=== PATIENT | male | born 1985 | race Hispanic/Latino ===

== ENCOUNTER 2021-04-09 17:52 | Inpatient (IN) | payer OTHER ==
[~2021-04-09] VITALS: Ht 175.3 cm; Wt 87.5 kg
[2021-04-09 17:53] VITALS: BP 118/68
[2021-04-09 21:57] VITALS: BP 123/77
[2021-04-09] MEDS ORDERED: 0.9% NACL 250ML IVPB ONE (22:30)
[2021-04-09] MEDS ORDERED: MONTELUKAST SODIUM 10 MG TAB PO SCH (22:30)
[2021-04-09] MEDS ORDERED: MAGNESIUM 2GM PREMIX 50ML 50 ML IV SCH (22:30)
[2021-04-09] MEDS ORDERED: AZITHROMYCIN 500MG VIAL IVPB ONE (22:30)
[2021-04-09] MEDS ORDERED: DEXAMETHASONE SOD PHOSPHATE 4 MG/ML 1ML VIAL IVP SCH (22:30)
[2021-04-09] MEDS ORDERED: ONDANSETRON 4MG INJ IVP ONE (22:30)
[2021-04-09] MEDS ORDERED: LACTATED RINGERS 1000ML 1,000 ML IV ONE (22:30)
[2021-04-09 22:36] LABS: ABG BASE EXCESS -0.9 mmol/L (-2.0-3.0); ABG HCO3 22.3 mmol/L (21.0-28.0); ABG OXYGEN SATURATION 95.7 % (95.0-99.0); ABG PCO2 33 mmHg (35-48)
[2021-04-09 22:42] LABS: BASOPHILS % (AUTO) 0.2 % (0.0-5.0); EOSINOPHILS % (AUTO) 0.2 % (0.0-8.0); HEMATOCRIT 40.5 % (42-54); LYMPHOCYTES % (AUTO) 25.4 % (21.0-51.0); MEAN CORPUSCULAR HEMOGLOBIN 31.4 pg (27.0-33.0); MEAN CORPUSCULAR HGB CONC 34.3 g/dL (32.0-36.0); MEAN CORPUSCULAR VOLUME 91.6 fL (79-99); MONOCYTES % (AUTO) 5.9 % (3.0-13.0); NEUTROPHILS % (AUTO) 67.8 % (40.0-77.0); PLATELET COUNT (AUTO) 161 K/uL (130-400); RED BLOOD CELL COUNT(AUTO) 4.42 MIL/uL (4.50-6.20); WHITE BLOOD COUNT (AUTO) 6.1 K/uL (4.8-10.8)
[2021-04-09] MEDS ORDERED: AZITHROMYCIN 500MG+NS 250ML 250 ML IV ONE (22:59)
[2021-04-10] VITALS (8 sets, daily range): BP systolic 108–123; BP diastolic 56–79
[2021-04-10] MEDS ORDERED: ENOXAPARIN SODIUM 80 MG/0.8 ML SQ ONE ×2 (00:30→01:33)
[2021-04-10] MEDS ORDERED: GUAIFENESIN-DM 200/20 MG 10 ML PO PRN (01:00)
[2021-04-10] MEDS ORDERED: DIPHENHYDRAMINE HCL 25 MG CAPSULE PO PRN (01:00)
[2021-04-10] MEDS: DEXAMETHASONE SOD PHOSPHATE 4 MG/ML 1ML VIAL IVP SCH (01:00)
[2021-04-10] MEDS ORDERED: LACTULOSE 20 GM/30 ML UDCUP PO PRN (01:00)
[2021-04-10] MEDS ORDERED: ACETAMINOPHEN WITH CODEINE 1 TAB TAB PO PRN ×2 (01:00)
[2021-04-10] MEDS: 0.9% NACL 250ML IVPB SCH (01:00)
[2021-04-10] MEDS ORDERED: ACETAMINOPHEN 325 MG TAB PO PRN (01:00)
[2021-04-10] MEDS: AZITHROMYCIN 500MG VIAL IVPB SCH (01:00)
[2021-04-10] MEDS ORDERED: ONDANSETRON 4MG INJ IV PRN (01:00)
[2021-04-10] MEDS ORDERED: ALBUTEROL INHALER 90MCG/INH IH PRN (01:00)
[2021-04-10] MEDS ORDERED: MAG/ALUM/SIMETH 30 ML UDCUP PO PRN (01:00)
[2021-04-10] MEDS: CEFTRIAXONE 1G VIAL IVP SCH ×2 (01:36→13:00)
[2021-04-10 01:53] LABS: INR 1.1 (0.85-1.15); PROTHROMBIN TIME 11.9 SEC (9.6-11.6)
[2021-04-10 01:54] LABS: PARTIAL THROMBOPLASTIN TIME 25.8 SEC (26.3-35.5)
[2021-04-10 02:24] LABS: CREATININE 1.1 mg/dL (0.5-1.5)
[2021-04-10 02:28] LABS: ALBUMIN 3.2 g/dL (3.5-5.0); BILIRUBIN,TOTAL 0.6 mg/dL (0.2-1.0); TOTAL PROTEIN, SERUM 7.7 g/dL (6.0-8.3)
[2021-04-10] MEDS: ASCORBIC ACID 500 MG TAB PO SCH (09:44)
[2021-04-10] MEDS: ZINC SULFATE 220 CAPSULE PO SCH (09:44)
[2021-04-10] MEDS: FAMOTIDINE 20MG VIAL IV SCH ×2 (09:44→21:07)
[2021-04-10] MEDS: ENOXAPARIN SODIUM 40 MG/0.4 ML SYRINGE SQ SCH (09:46)
[2021-04-10] MEDS ORDERED: PHARMACY COMMUNICATION**REMDESIVIR MISC SCH (11:00)
[2021-04-11] MEDS ORDERED: AZITHROMYCIN 500MG+NS 250ML 250 ML IV ONE (00:58)
[2021-04-11 01:20] LABS: BASOPHILS % (AUTO) 0.2 % (0.0-5.0); EOSINOPHILS % (AUTO) 2.5 % (0.0-8.0); HEMATOCRIT 37.5 % (42-54); LYMPHOCYTES % (AUTO) 24.6 % (21.0-51.0); MEAN CORPUSCULAR HGB CONC 34.9 g/dL (32.0-36.0); MEAN CORPUSCULAR VOLUME 91.7 fL (79-99); MONOCYTES % (AUTO) 8.4 % (3.0-13.0); NEUTROPHILS % (AUTO) 63.5 % (40.0-77.0); PLATELET COUNT (AUTO) 192 K/uL (130-400); RED BLOOD CELL COUNT(AUTO) 4.09 MIL/uL (4.50-6.20); RED CELL DISTRIBUTION WIDTH 11.9 % (11.0-15.5); WHITE BLOOD COUNT (AUTO) 6.1 K/uL (4.8-10.8)
[2021-04-11 01:36] VITALS: BP 94/60
[2021-04-11] MEDS: 0.9% NACL 250ML IVPB SCH (01:36)
[2021-04-11] MEDS: DEXAMETHASONE SOD PHOSPHATE 4 MG/ML 1ML VIAL IVP SCH (01:36)
[2021-04-11] MEDS: AZITHROMYCIN 500MG VIAL IVPB SCH (01:36)
[2021-04-11] MEDS: CEFTRIAXONE 1G VIAL IVP SCH ×2 (01:36→13:31)
[2021-04-11 07:50] LABS: ALBUMIN 2.6 g/dL (3.5-5.0); BILIRUBIN,TOTAL 0.5 mg/dL (0.2-1.0); POTASSIUM 4.5 mmol/L (3.5-5.1); TOTAL PROTEIN, SERUM 6.8 g/dL (6.0-8.3)
[2021-04-11] MEDS: FAMOTIDINE 20MG VIAL IV SCH ×2 (09:43→20:32)
[2021-04-11] MEDS: ASCORBIC ACID 500 MG TAB PO SCH (09:43)
[2021-04-11] MEDS: ENOXAPARIN SODIUM 40 MG/0.4 ML SYRINGE SQ SCH (09:44)
[2021-04-11] MEDS: ZINC SULFATE 220 CAPSULE PO SCH (09:44)
[2021-04-11 09:55] VITALS: BP 103/63
[2021-04-11 11:30] VITALS: BP 106/65
[2021-04-11 17:18] VITALS: BP 112/58
[2021-04-11 20:00] VITALS: BP 110/65
[2021-04-12] VITALS: BP 114/76
[2021-04-12] MEDS ORDERED: AZITHROMYCIN 500MG+NS 250ML 250 ML IV ONE (01:31)
[2021-04-12] MEDS: DEXAMETHASONE SOD PHOSPHATE 4 MG/ML 1ML VIAL IVP SCH (01:43)
[2021-04-12] MEDS: AZITHROMYCIN 500MG VIAL IVPB SCH (01:43)
[2021-04-12] MEDS: CEFTRIAXONE 1G VIAL IVP SCH (01:43)
[2021-04-12] MEDS: 0.9% NACL 250ML IVPB SCH (01:43)
[2021-04-12 04:15] VITALS: BP 112/72
[2021-04-12 06:08] LABS: HEMATOCRIT 40.5 % (42-54); LYMPHOCYTES % (AUTO) 17.8 % (21.0-51.0); MEAN CORPUSCULAR HGB CONC 34.6 g/dL (32.0-36.0); MEAN CORPUSCULAR VOLUME 89.8 fL (79-99); MONOCYTES % (AUTO) 5.1 % (3.0-13.0); NEUTROPHILS % (AUTO) 76.3 % (40.0-77.0); PLATELET COUNT (AUTO) 258 K/uL (130-400); RED BLOOD CELL COUNT(AUTO) 4.51 MIL/uL (4.50-6.20); RED CELL DISTRIBUTION WIDTH 11.6 % (11.0-15.5); WHITE BLOOD COUNT (AUTO) 6.1 K/uL (4.8-10.8)
[2021-04-12 06:22] LABS: ALBUMIN 2.9 g/dL (3.5-5.0); BILIRUBIN,TOTAL 0.6 mg/dL (0.2-1.0); POTASSIUM 4.2 mmol/L (3.5-5.1)
[2021-04-12 08:00] VITALS: BP 99/66
[2021-04-12] MEDS: ENOXAPARIN SODIUM 40 MG/0.4 ML SYRINGE SQ SCH (09:49)
[2021-04-12] MEDS: ASCORBIC ACID 500 MG TAB PO SCH (09:49)
[2021-04-12] MEDS: FAMOTIDINE 20MG VIAL IV SCH (09:49)
[2021-04-12] MEDS: ZINC SULFATE 220 CAPSULE PO SCH (09:49)
[2021-04-12] MEDS ORDERED: ALBU8.5H8 IH (13:24)
[2021-04-12] MEDS ORDERED: DEXA6TAB PO (13:24)
[2021-04-12] MEDS ORDERED: ASPI-1005 PO (13:24)
== END 2021-04-12 14:35 | disposition home or self-care (01) | DRG 177 ==
LOC: EDH 17:52 → EEVIPCON 17:52 → EDHIP 04-10 00:44
PROVIDERS: ADMIT Hospitalist; ATTEND Hospitalist
DX: U07.1 COVID-19 (principal); J12.82 Pneumonia due to coronavirus disease 2019; J96.01 Acute respiratory failure with hypoxia; D68.59 Other primary thrombophilia; E66.9 Obesity, unspecified; R79.89 Other specified abnormal findings of blood chemistry; Z68.28 Body mass index [BMI] 28.0-28.9, adult
CPT/HCPCS: 36415; 36600; 71045; 80053; 82435; 82728; 82803; 82947; 83605; 83615; 83690; 84132; 84145; 84295; 85018; 85025; 85378; 85610; 85730; 86140; 87040; 87635; 93970; C9803; G0378; J0456; J0696; J1100; J1650; J2405; J3475; J3490; J7050